=== PATIENT | male | born 1980 | race African-American/Black ===

== ENCOUNTER 2023-10-05 13:23 | Inpatient (IN) | payer SELFPAY ==
[~2023-10-05] VITALS: Ht 185.4 cm; Wt 104.5 kg
[2023-10-05 14:10] LABS: Basophils # (auto) 0 10 ^3/uL (0-0.2); Basophils % (auto) 0.3 % (0.0-2.0); Eosinophils # (auto) 0 10 ^3/uL (0-0.8); Eosinophils % (auto) 0.4 % (0.0-7.0); Hematocrit 45.1 % (41.0-53.0); Hemoglobin 14.9 g/dL (13.5-17.5); Lymphocytes # (auto) 1.9 10 ^3/uL (0.4-5.4); Lymphocytes % (auto) 23.1 % (10.0-50.0); Mean Corpuscular Hemoglobin 28.8 pg (28.0-32.0); Mean Corpuscular Volume 87.3 fL (80.0-100.0); Monocytes # (auto) 0.6 10 ^3/uL (0-1.3); Monocytes % (auto) 7.5 % (0.0-12.0); Neutrophils # (auto) 5.7 10 ^3/uL (1.6-8.6); Neutrophils % (auto) 68.7 % (37.0-80.0); Red Blood Cells 5.17 10^6/uL (4.5-5.90); Red Cell Distribution Width 13.8 % (11.8-14.3); White Blood Cell 8.3 10^3/uL (4.4-10.8)
[2023-10-05] MEDS: hydrALAZINE HCL 20 MG/ML VL IV ONE (14:27)
[2023-10-05 14:37] LABS: Alanine Aminotransferase 22 U/L (7-40); Albumin 4.2 g/dL (3.2-4.8); Alkaline Phosphatase 78 U/L (46-116); Anion Gap 6 (5-15); Aspartate Aminotransferase 10 U/L (13-40); BUN/Creatinine Ratio 10.1 (10.0-20.0); Bilirubin, Total 0.6 mg/dL (0.2-1.0); Blood Urea Nitrogen 10 mg/dL (9-23); Calcium 9.3 mg/dL (8.7-10.4); Carbon Dioxide 27 mmol/L (20-30); Chloride 104 mmol/L (98-107); Glucose 243 mg/dL (74-106); Potassium 3.7 mmol/L (3.5-5.1); Sodium 137 mmol/L (136-145); Total Protein 7.5 g/dL (5.7-8.2)
[2023-10-05] MEDS: hydrALAZINE HCL 20 MG/ML VL ONE (14:42)
[2023-10-05] MEDS: LABETALOL HCL 5 MG/ML 4ML SYRINGE IV ONE (16:25)
[2023-10-05 16:28] VITALS: PULSE 101; RESP 20; O2SAT 96
[2023-10-05] MEDS ORDERED: HYDR25TA5 PO (16:42)
[2023-10-05] MEDS ORDERED: CARV12.544 PO (16:42)
[2023-10-05] MEDS ORDERED: LISI20TA56 PO (16:42)
[2023-10-05] MEDS ORDERED: GLIP5TAB21 PO (16:42)
[2023-10-05] MEDS ORDERED: MORPHINE SULFATE INJ 2 MG/ml SYRG IV PRN (16:45)
[2023-10-05] MEDS ORDERED: NITROGLYCERIN 0.4 MG SL TAB SL PRN (16:45)
[2023-10-05] MEDS ORDERED: ACETAMINOPHEN 325 MG TAB PO PRN (16:45)
[2023-10-05] MEDS ORDERED: DEXTROSE (50%) 50ML SYRG IV PRN (16:45)
[2023-10-05] MEDS: InsuLIN REG 1unit/0.01ml Soln (100units/ml) SC SCH (17:00)
[2023-10-05] MEDS: ACCU-CHEK COMFORT CURVE STRIP VI SCH (17:00)
[2023-10-05 17:07] LABS: Triglycerides 122 mg/dL (< 150)
[2023-10-05 17:08] LABS: LDL Cholesterol 147 mg/dL (< 100)
[2023-10-05 17:09] LABS: Cholesterol 211 mg/dL (< 200); HDL Cholesterol 52 mg/dL (40-59)
[2023-10-05 17:36] LABS: Urine Bacteria None Seen /hpf (None Seen)
[2023-10-05 17:57] LABS: Urine Blood Negative /uL (Negative); Urine Clarity Clear (Clear); Urine Color Light-Yellow (Yellow); Urine Protein, UAD 1+ (Negative); Urine Specific Gravity 1.014 (1.001-1.035); Urine Urobilinogen Normal (Negative); Urine WBC <1 /hpf (0 - 3)
[2023-10-05 19:25] VITALS: PULSE 104; RESP 21; O2SAT 98
[2023-10-05] MEDS ORDERED: PANTOPRAZOLE 40 MG TAB PO ONE (20:39)
[2023-10-05] MEDS: PANTOPRAZOLE 40 MG TAB PO ONE (20:40)
[2023-10-05] MEDS ORDERED: hydrALAZINE HCL 20 MG/ML VL ONE (21:30)
[2023-10-05] MEDS: hydrALAZINE HCL 20 MG/ML VL IV PRN (21:32)
[2023-10-05] MEDS ORDERED: CARVEDILOL 12.5 MG TAB ONE (21:40)
[2023-10-05] MEDS ORDERED: hydroCHLOROthiazide 25 MG TAB ONE (21:41)
[2023-10-05] MEDS: CARVEDILOL 12.5 MG TAB PO SCH (21:42)
[2023-10-05] MEDS: hydroCHLOROthiazide 25 MG TAB PO SCH (21:42)
[2023-10-05] MEDS ORDERED: InsuLIN REG 1unit/0.01ml Soln (100units/ml) ONE (22:43)
[2023-10-05] MEDS ORDERED: cloNIDine HCL 0.1 MG TAB ONE (23:32)
[2023-10-05] MEDS: cloNIDine HCL 0.1 MG TAB PO ONE (23:36)
[2023-10-06] VITALS (9 sets, daily range): BP systolic 133–166; BP diastolic 81–115; PULSE 83–106; RESP 14–20; TEMP 97.6–98.1; O2SAT 94–98
[2023-10-06] MEDS ORDERED: hydrALAZINE HCL 20 MG/ML VL ONE (03:03)
[2023-10-06 06:30] LABS: Alanine Aminotransferase 16 U/L (7-40); Albumin 3.8 g/dL (3.2-4.8); Alkaline Phosphatase 69 U/L (46-116); Anion Gap 7 (5-15); Aspartate Aminotransferase 12 U/L (13-40); BUN/Creatinine Ratio 12.3 (10.0-20.0); Bilirubin, Total 0.7 mg/dL (0.2-1.0); Blood Urea Nitrogen 14 mg/dL (9-23); Calcium 8.9 mg/dL (8.5-10.1); Carbon Dioxide 27 mmol/L (20-30); Chloride 103 mmol/L (98-107); Glucose 270 mg/dL (74-106); Potassium 3.3 mmol/L (3.5-5.1); Sodium 137 mmol/L (136-145); Total Protein 6.3 g/dL (5.7-8.2)
[2023-10-06 06:34] LABS: Basophils # (auto) 0 10 ^3/uL (0-0.2); Basophils % (auto) 0.2 % (0.0-2.0); Eosinophils # (auto) 0 10 ^3/uL (0-0.8); Eosinophils % (auto) 0.6 % (0.0-7.0); Hematocrit 40.8 % (41.0-53.0); Lymphocytes # (auto) 1.7 10 ^3/uL (0.4-5.4); Lymphocytes % (auto) 22.1 % (10.0-50.0); Mean Corpuscular Hemoglobin 29.6 pg (28.0-32.0); Mean Corpuscular Hgb Conc. 34.2 g/dL (32.0-36.0); Mean Corpuscular Volume 86.5 fL (80.0-100.0); Monocytes # (auto) 0.7 10 ^3/uL (0-1.3); Monocytes % (auto) 8.4 % (0.0-12.0); Neutrophils # (auto) 5.4 10 ^3/uL (1.6-8.6); Neutrophils % (auto) 68.7 % (37.0-80.0); Red Blood Cells 4.72 10^6/uL (4.5-5.90); Red Cell Distribution Width 13.9 % (11.8-14.3); White Blood Cell 7.8 10^3/uL (4.4-10.8)
[2023-10-06] MEDS ORDERED: InsuLIN REG 1unit/0.01ml Soln (100units/ml) ONE (06:44)
[2023-10-06] MEDS ORDERED: glipiZIDE 5 MG TAB ONE (06:45)
[2023-10-06] MEDS: glipiZIDE 5 MG TAB PO SCH (06:46)
[2023-10-06] MEDS: LISINOPRIL 20 MG TAB PO SCH (09:12)
[2023-10-06] MEDS: PANTOPRAZOLE 40 MG TAB PO SCH (09:12)
[2023-10-06] MEDS: ENOXAPARIN SOD 40 MG/0.4 ML SYRINGE SC SCH (09:13)
[2023-10-06] MEDS: LISINOPRIL 20 MG TAB ONE (09:48)
[2023-10-06] MEDS: CARVEDILOL 12.5 MG TAB ONE (09:49)
[2023-10-06] MEDS: PANTOPRAZOLE 40 MG TAB PO ONE (09:49)
[2023-10-06] MEDS: hydroCHLOROthiazide 25 MG TAB ONE (09:49)
[2023-10-06] MEDS: ENOXAPARIN SOD 40 MG/0.4 ML SYRINGE SC ONE (09:49)
[2023-10-06] MEDS: POTASSIUM CHL 20 Meq TABLET PO ONE (12:37)
[2023-10-07 01:00] VITALS: BP 157/100; PULSE 98; RESP 22; TEMP 98.1; O2SAT 98
[2023-10-07 01:45] VITALS: BP 144/84; PULSE 101; RESP 20
== END 2023-10-07 04:10 | disposition left against medical advice (07) | DRG 305 ==
LOC: ER 13:23 → TELE 16:42 → TELE-WESTW 10-06 01:48
PROVIDERS: ADMIT Nurse Practitioner Family; ATTEND Internal Medicine
DX: I16.0 Hypertensive urgency (principal); E11.65 Type 2 diabetes mellitus with hyperglycemia; E66.01 Morbid (severe) obesity due to excess calories; K21.9 Gastro-esophageal reflux disease without esophagitis; Z53.29 Procedure and treatment not carried out because of patient's decision for other reasons; E78.5 Hyperlipidemia, unspecified; Z68.30 Body mass index [BMI] 30.0-30.9, adult; Z82.49 Family history of ischemic heart disease and other diseases of the circulatory system; Z83.3 Family history of diabetes mellitus
CPT/HCPCS: 36415; 70450; 80053; 80061; 81001; 82962; 83036; 84443; 84484; 85025; 87081; 93005; 96374; 96375; 99291; G0378; J1815; J3490

== ENCOUNTER 2023-11-15 03:25 | Emergency (ER) | payer MEDICAID, OTHER ==
[~2023-11-15] VITALS: Ht 185.4 cm; Wt 107.2 kg
[~2023-11-15 03:25] MED LIST: CARV12.544 PO; GLIP5TAB21 PO; HYDR25TA5 PO; LISI20TA56 PO
[2023-11-15] MEDS ORDERED: HYDR-4902 PO (03:56)
[2023-11-15] MEDS: CLINDAMYCIN 900MG IV 50 ML IV ONE (04:16)
[2023-11-15] MEDS: cloNIDine HCL 0.1 MG TAB PO ONE (04:21)
[2023-11-15] MEDS: HYDROcodone-ACET 5/325MG TAB PO ONE (04:22)
[2023-11-15 04:25] VITALS: BP 164/105; PULSE 112; RESP 20; TEMP 98; O2SAT 98
== END 2023-11-15 05:15 | disposition home or self-care (01) ==
LOC: ER 03:25
DX: L03.811 Cellulitis of head [any part, except face] (principal); L02.811 Cutaneous abscess of head [any part, except face]; I10 Essential (primary) hypertension; E11.9 Type 2 diabetes mellitus without complications; K21.9 Gastro-esophageal reflux disease without esophagitis
CPT/HCPCS: 96365; 99284; J3490

== ENCOUNTER 2023-11-16 18:00 | Emergency (ER) | payer MEDICAID ==
[~2023-11-16] VITALS: Ht 185.4 cm; Wt 107.0 kg
[~2023-11-16 18:00] MED LIST changes: +HYDR-4902 PO
[2023-11-16 19:51] LABS: Basophils # (auto) 0.1 10 ^3/uL (0-0.2); Basophils % (auto) 0.6 % (0.0-2.0); Eosinophils # (auto) 0.2 10 ^3/uL (0-0.8); Eosinophils % (auto) 1.4 % (0.0-7.0); Hematocrit 40.7 % (41.0-53.0); Hemoglobin 13.4 g/dL (13.5-17.5); Lymphocytes # (auto) 2.2 10 ^3/uL (0.4-5.4); Lymphocytes % (auto) 16.8 % (10.0-50.0); Mean Corpuscular Hemoglobin 28.3 pg (28.0-32.0); Mean Corpuscular Hgb Conc. 32.8 g/dL (32.0-36.0); Mean Corpuscular Volume 86.2 fL (80.0-100.0); Monocytes # (auto) 1.2 10 ^3/uL (0-1.3); Neutrophils # (auto) 9.5 10 ^3/uL (1.6-8.6); Neutrophils % (auto) 72.2 % (37.0-80.0); Nucleated Red Blood Cells % 0.1 %; Red Blood Cells 4.73 10^6/uL (4.5-5.90); Red Cell Distribution Width 13.8 % (11.8-14.3); White Blood Cell 13.2 10^3/uL (4.4-10.8)
[2023-11-16 20:08] LABS: Alanine Aminotransferase 29 U/L (7-40); Albumin 4.3 g/dL (3.2-4.8); Alkaline Phosphatase 116 U/L (46-116); Anion Gap 4 (5-15); Aspartate Aminotransferase 10 U/L (13-40); BUN/Creatinine Ratio 13.4 (10.0-20.0); Bilirubin, Total 0.3 mg/dL (0.2-1.0); Blood Urea Nitrogen 15 mg/dL (9-23); Calcium 9.7 mg/dL (8.5-10.1); Carbon Dioxide 31 mmol/L (20-30); Chloride 102 mmol/L (98-107); Glucose 194 mg/dL (74-106); Potassium 4.1 mmol/L (3.5-5.1); Sodium 137 mmol/L (136-145); Total Protein 7.4 g/dL (5.7-8.2)
[2023-11-16] MEDS: IOHEXOL 350 MG/ML 100ML IJ ONE (20:42)
[2023-11-17 01:23] VITALS: BP 186/115; PULSE 104; RESP 19; TEMP 98.3
[2023-11-17] MEDS: cloNIDine HCL 0.1 MG TAB PO ONE (01:33)
[2023-11-17] MEDS: HYDROcodone-ACET 5/325MG TAB PO ONE (01:33)
[2023-11-17] MEDS: PIPERACILLIN-TAZOB 3.375GM 100 ML IV ONE (01:34)
[2023-11-17] MEDS: SODIUM CHLORIDE 0.9% 1,000 ML IV ONE (01:34)
[2023-11-17 04:39] VITALS: O2SAT 98
== END 2023-11-17 04:43 | disposition home or self-care (01) ==
LOC: ER 18:00
DX: L02.811 Cutaneous abscess of head [any part, except face] (principal); I10 Essential (primary) hypertension; E11.9 Type 2 diabetes mellitus without complications; K21.9 Gastro-esophageal reflux disease without esophagitis; Z79.899 Other long term (current) drug therapy
CPT/HCPCS: 10060; 36415; 70460; 70491; 80053; 85025; 96365; 96366; 99285; J2543; Q9967; 10061

== ENCOUNTER 2023-11-18 23:34 | Emergency (ER) | payer MEDICAID ==
[~2023-11-18] VITALS: Ht 185.4 cm; Wt 106.8 kg
[2023-11-18 23:58] VITALS: BP 172/110; PULSE 105; RESP 16; TEMP 99.6; O2SAT 96
[2023-11-19] MEDS: cloNIDine HCL 0.1 MG TAB PO ONE (01:19)
[2023-11-19] MEDS ORDERED: IBUP-1456 PO (01:40)
[2023-11-19] MEDS ORDERED: BACDST PO (01:40)
[2023-11-19] MEDS: IBUPROFEN 800 MG TAB PO ONE (01:55)
== END 2023-11-19 02:05 | disposition home or self-care (01) ==
LOC: ER 23:34
DX: L02.11 Cutaneous abscess of neck (principal); E11.9 Type 2 diabetes mellitus without complications; K21.9 Gastro-esophageal reflux disease without esophagitis; I10 Essential (primary) hypertension